=== PATIENT | male | born 1995 | race Caucasian/White ===

== ENCOUNTER 2019-08-17 20:15 | Emergency (ER) | payer MEDICAID ==
[~2019-08-17] VITALS: Ht 152.4 cm; Wt 49.9 kg
--- NOTE | 2019-08-17 20:17 | NUR ---
PT MELY ALS. TAKEN TO BED 5
[2019-08-17 20:20] VITALS: BP 119/53
--- NOTE | 2019-08-17 20:23 | NUR ---
Dr. Cavazos examining patient.
[2019-08-17] MEDS ORDERED: NACL 0.9% 1,000 ML IV ONE (20:25)
--- NOTE | 2019-08-17 20:30 | NUR ---
23 YEAR OLD MALE BIBA FOR 3-4 SEIZURES PRIOR TO THEIR ARRIVAL. PER EMS PATINT WAS HAVING SEIZURES THAT LAST ABOUT 2MINS TOTAL. PATIENT GIVEN VERSED 2.5MG IV IN TRANSIT. UPON ARRIVAL TO ER PATIENT PLACED ON SEIZURE PRECAUTIONS, PLACED ON MONITOR WITH VS STABLE. PATIENT PLACED ON 2L NC. PATIENT GCS 7 ([id number]), AOX0 AND UNRESPONSIVE. NO LACERATIONS NOTED. PER FAMILY PATIENT HAD NO TRAUMA AND DID NOT FALL. PATIENT BREATHING EVEN AND UNLABORED, SKIN WARM AND DRY. BED IN LOWEST POSITION, LOCKED, BED RAIL UPX2. ERMD MADE AWARE. PMH - SEIZURE ALLERGIES - NKA
[2019-08-17 20:39] LABS: BASOPHILS % (AUTO) 0.2 % (0.0-2.0); HEMATOCRIT 45.9 % (36-52); HEMOGLOBIN 15.3 g/dL (12.0-18.0); LYMPHOCYTES # (AUTO) 0.4 K/uL (2.0-11.5); LYMPHOCYTES % (AUTO) 2.2 % (20.5-51.1); MEAN CORPUSCULAR HEMOGLOBIN 31 pg (27-31); MEAN CORPUSCULAR HGB CONC 33 g/dL (33-37); MEAN CORPUSCULAR VOLUME 92.3 fL (80-94); MONOCYTES # (AUTO) 0.7 K/uL (0.8-1.0); MONOCYTES % (AUTO) 4.1 % (1.7-9.3); NEUTROPHILS # (AUTO) 15.7 K/uL (1.8-7.7); NEUTROPHILS % (AUTO) 93.5 % (42.2-75.2); PLATELET COUNT (AUTO) 222 K/uL (140-450); RED BLOOD CELL COUNT(AUTO) 4.98 MIL/uL (4.20-6.10); WHITE BLOOD COUNT (AUTO) 16.8 K/uL (4.8-10.8)
[2019-08-17 20:49] LABS: PROTHROMBIN TIME 10.4 secs (10.8-13.4)
[2019-08-17 20:52] LABS: ALBUMIN 4.7 g/dL (3.4-5.0); ANION GAP 16.4 (8-16); ASPARTATE AMINOTRANSFERASE 23 U/L (15-37); CARBON DIOXIDE 23.1 mmol/L (21-32); CHLORIDE 101 mmol/L (98-107); CREATININE 1.5 mg/dL (0.6-1.3); GFR ARICAN-AMERICAN 75 mL/min (>90); GLUCOSE 154 mg/dL (74-106); POTASSIUM 3.5 mmol/L (3.5-5.1); SODIUM SERUM 137 mmol/L (136-145); TOTAL BILIRUBIN 0.4 mg/dL (0.0-1.0); UREA NITROGEN, BLOOD 12 mg/dL (7-18)
[2019-08-17 20:53] LABS: ACETAMINOPHEN < 0.5 ug/ml (10-30); SALICYLATE < 2.8 mg/dL (2.8-20.0)
[2019-08-17 20:53] LABS: APPEARANCE,URINE CLEAR (CLEAR); BILIRUBIN,URINE NEGATIVE (NEGATIVE); BLOOD, URINE 1+ (NEGATIVE); COLOR,URINE YELLOW (YELLOW); LEUKOCYTE ESTERASE ,URINE NEGATIVE (NEGATIVE); NITRITE, URINE NEGATIVE (NEGATIVE); PH,URINE 5.5 (5.0-9.0); UGLUCOSE NEGATIVE (NEGATIVE)
[2019-08-17 21:00] LABS: WBC,URINE 0-5 /HPF (0-5)
[2019-08-17 21:01] LABS: BARBITURATE, URINE NEGATIVE ng/ml (NEG <=200); BENZODIAZEPINE, URINE NEGATIVE ng/mL (NEG <=200); CANNABINOID, URINE POSITIVE ng/mL (NEG <=50); COCAINE, URINE NEGATIVE ng/mL (NEG <=300); OPIATE, URINE NEGATIVE ng/mL (NEG <=2000); PHENCYCLIDINE SCREEN,URINE NEGATIVE ng/mL (NEG <=25)
--- NOTE | 2019-08-17 21:20 | NUR ---
PATIENT RESTING WITH EYES CLOSED, BREATHING EVEN AND UNLABORED
--- NOTE | 2019-08-17 22:21 | NUR ---
PATIENT ON PHONE WITH SISTER, BREATHING EVEN AND UNLABORED
[2019-08-17 22:40] VITALS: BP 105/45
--- NOTE | 2019-08-17 22:40 | NUR ---
Patient discharged with v/s stable. Written and verbal after care instructions about seizures given and explained. Patient verbalized understanding. Ambulatory with steady gait. All questions addressed prior to discharge. Advised to follow up with PMD. Patient given excuse from work. Patient to be picked up by family.
== END 2019-08-17 22:40 | disposition home or self-care (01) ==
LOC: MED 20:15
DX: G40.909 Epilepsy, unspecified, not intractable, without status epilepticus (principal)
CPT/HCPCS: 36415; 80053; 80305; 81001; 85025; 85610; 99285; G0480; G0482; J7030